=== PATIENT | female | born 1970 | race Caucasian/White ===

== ENCOUNTER 2017-02-15 14:34 | Outpatient (CLI) | payer BC ==
--- NOTE | 2017-02-15 15:53 | ULT ---
RIGHT LOWER EXTREMIT VENOUS DUPLEX STUDY: Technique: Deep veins of the right lower extremity were evaluated with ultrasound doppler. Color dopp ler with spectral analysis performed. History: Right lower extremity pain and edema. FINDINGS: There is normal compression and blood flow. No evidence of DVT. IMPRESSION: No evidence of right lower extremity DVT. POS: [facility]
== END 2017-02-15 14:35 | disposition home or self-care (01) ==
LOC: ULT 14:34
PROVIDERS: ATTEND Internal Medicine
DX: R22.41 Localized swelling, mass and lump, right lower limb (principal)

== ENCOUNTER 2017-12-13 15:43 | Outpatient (CLI) | payer BC ==
--- NOTE | 2017-12-13 17:46 | MRI ---
NONCONTRAST MRI OF LUMBAR SPINE: 12/13/17 HISTORY: Low back pain radiating down into both hips and legs. COMPARISON: None available. FINDINGS: Retroperitoneal structures demonstrate a normal nonenhanced CT appearance. Focus of increased T2 weighted signal intensity seen at superior anterior end plate of the L3 vertebr al body which may represent mild degenerative changes. There is a focal area of increased T1 and T2 w eighted signal intensity seen within the right sacral ala, likely related to focal area of fat. Maryanne l signal intensity is otherwise demonstrated throughout the bone marrow. L1-2 level: There is no disc bulge or disc herniation. Central spinal canal and neural foramina are p atent. L2-3 level: There is minimal disc osteophyte complex predominantly laterally resulting in slight effa cement of the ventral aspect of the thecal sac. Neural foramina are patent. L3-4 level: There is a mild broad based disc osteophyte complex. Facet hypertrophic changes and ligam entous thickening are noted. There is mild generalized narrowing of the central spinal canal. Neural foramina are patent bilaterally. L4-5 level: There is mild loss of intervertebral disc height. Mild broad based disc osteophyte comple x is present. There are tiny linear area of increased T2 weighted signal intensity seen at the right posterolateral margin of the intervertebral disc suggesting a small annular tear. Mild facet hypertro phic changes are present. There is minimal right sided neural foraminal narrowing. The left neural fo ramen is patent. There is mild effacement of the ventral aspect of the central spinal canal. L5-S1 level: There is no disc bulge or disc herniation. Central spinal canal and neural foramina are patent. Facet hypertrophic changes are noted. 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 IMPRESSION: Mild degenerative changes in the lumbar spine. POS: [facility]
== END 2017-12-13 15:44 | disposition home or self-care (01) ==
LOC: SCSMRI 15:43
PROVIDERS: ATTEND Neurological Surgery
DX: M54.5 Low back pain (principal); M47.896 Other spondylosis, lumbar region
CPT/HCPCS: 72148

== ENCOUNTER 2018-09-27 08:26 | Outpatient (CLI) | payer BC ==
[~2018-09-27 08:26] MED LIST: EPINEPHrine 1 MG/ML AMP ONE; Gadobenate Dimeglumine 529 MG/1 ML (20ML VIAL) ONE; Iopamidol 300 61% 50 ML VIAL FS ONE; Lidocaine 1% PF 10 ML AMP ONE
--- NOTE | 2018-09-27 10:53 | MRI ---
MRI Upper Ext Jt Rt W Con HISTORY: Right shoulder sprain COMPARISON: Arthrogram exam done earlier today. FINDINGS: There are mild arthrosis changes of the AC joint. The supra as well as infraspinatus tendons are intact. The subscapularis muscle and tendon are normal in appearance. On the T2-weighted sequence there is some increased signal change in the superior labrum posterior to the biceps anchor however there is no fluid density signal and no contrast in this area this would suggest some mild degeneration without evidence of a tear. The remainder the labrum appears intact. There are edema changes and a slightly thickened appearance to the inferior glenohumeral ligament sug gesting inferior glenohumeral ligament sprain. No detachment at the humeral or glenoid. IMPRESSION: 1. No evidence of rotator cuff or labral tear. 2. Edema changes and some thickening associated with the inferior glenohumeral ligament suggesting sp rain.
[2018-09-27] MEDS ORDERED: Gadobenate Dimeglumine 529 MG/1 ML (20ML VIAL) ONE (11:50)
--- NOTE | 2018-09-27 11:53 | RAD ---
Arthrogram right shoulder HISTORY: Internal derangement right shoulder. FINDINGS: After explaining the procedure and answering all questions, the anterior aspect of the [facility] t shoulder was prepped and draped in usual sterile fashion. Sterile technique, buffered local anesthesia, fluoroscopic guidance, and an anterior approach were used to carefully advance the tip of a 22-gauge spinal needle to the joint capsule at the level of the humeral head. Approximately 10 cc of a liquid mixture containing normal saline, 1% lidocaine, iodinated contrast, a nd small amounts of gadolinium and epinephrine were then instilled into the joint capsule under fluoroscopic control. Needle was removed. Contrast remained within the joint capsule. Patient tolerat ed the procedure well and was transferred to MRI in good condition for further imaging. Fluoroscopy time 0.3 minutes. IMPRESSION: Successful right shoulder arthrogram. No evidence of full-thickness rotator cuff tear. MR I is pending.
== END 2018-09-27 08:27 | disposition home or self-care (01) ==
LOC: RAD 08:26
PROVIDERS: ATTEND Orthopaedic Surgery
DX: S43.401A Unspecified sprain of right shoulder joint, initial encounter (principal)
CPT/HCPCS: 23350; A9577; J0171; J2001; Q9967

== ENCOUNTER 2021-03-08 09:51 | Day surgery (SDC) | payer BC ==
[2021-03-07 13:40] VITALS: BMI 22.8
[2021-03-08] MEDS ORDERED: ceFAZolin 2 GM/DEX 5% 100 ML BAG ONE (10:55)
[2021-03-08] MEDS ORDERED: Bupivacaine 0.25% 10 ML VIAL ONE (11:09)
[2021-03-08] MEDS ORDERED: metroNIDAZOLE 500 MG in Premix Bag 1 BAG IVPB SCH (11:15)
[2021-03-08] MEDS ORDERED: Fentanyl 100 MCG/2 ML VIAL ONE ×2 (12:00→13:31)
[2021-03-08] MEDS ORDERED: Midazolam HCl 2 mg/2 ml Vial ONE (12:00)
[2021-03-08] MEDS ORDERED: Dexamethasone 20 MG/5 ML VIAL ONE (12:20)
[2021-03-08] MEDS ORDERED: Ondansetron PF 4 MG/2 ML Vial ONE (12:20)
[2021-03-08] MEDS ORDERED: PROPOFOL 200 MG/20 ML VIAL ONE (12:20)
[2021-03-08] MEDS ORDERED: Lidocaine 1% PF 5 ML VIAL ONE (12:20)
[2021-03-08] MEDS ORDERED: Ketorolac Tromethamine 30 MG/ML VIAL ONE (13:17)
[2021-03-08] MEDS ORDERED: Phenazopyridine HCl 100 MG TAB ONE (13:17)
[2021-03-08] MEDS ORDERED: Oxybutynin 5 MG TAB ONE (13:17)
[2021-03-08] MEDS ORDERED: HYDROcodone/Acetaminophen 5/325 mg Tablet ONE ×2 (14:11→14:57)
== END 2021-03-08 17:25 | disposition home or self-care (01) ==
LOC: SDC 09:51
PROVIDERS: ATTEND Urology
PROC: 0TSD0ZZ Reposition Urethra, Open Approach (ICD-10-PCS; principal; 2021-03-08)
DX: N39.3 Stress incontinence (female) (male) (principal); N39.0 Urinary tract infection, site not specified; G40.409 Other generalized epilepsy and epileptic syndromes, not intractable, without status epilepticus; E03.9 Hypothyroidism, unspecified; Z86.16 Personal history of COVID-19; Z79.2 Long term (current) use of antibiotics; Z79.899 Other long term (current) drug therapy; Z88.0 Allergy status to penicillin; Z88.3 Allergy status to other anti-infective agents
CPT/HCPCS: C1781; J1100; J1885; J2250; J2405; J2704; J3010; S0020